=== PATIENT | female | born 1990 | race Caucasian/White ===

== ENCOUNTER 2016-10-19 20:31 | Emergency (ER) | payer MEDICAID ==
--- NOTE | ~2016-10-19 | ER ---
PATIENT'S NAME: KALA LOPEZ [facility] AGE: 26 Y [address] ROOM: [place] [id number] LOCATION: [facility] ADMIT DATE: 10/19/2016 ER/Outpatient Report DISCHARGE DATE: 10/19/2016 FAMILY PHYSICIAN: PHYSICIAN, NO ATTENDING PHYSICIAN: Roque Coyne Time of Arrival: 2038 hours. Time of Evaluation: 2038 hours. CHIEF COMPLAINT: Vaginal cramps and bleeding. HISTORY OF PRESENT ILLNESS: The patient states she was diagnosed by Dr. Jonathan Sheridan, her OB doctor in [place], [place], positive and is approximately 8 weeks' along. States her last menstrual period was August 21, 2016. Her due date would be May 29, 2017. She is a 2, para 1, AB 0. States on Tuesday night Tuesday morning, she had some dark vaginal discharge. Did have sexual intercourse, and then the bleeding became more bright red yesterday. She states that she had cramping yesterday, but it has calmed down, but continues to have some brownish red discharge today. States that she has gone through 4 panty liners. States her last bowel movement was yesterday. She has not had any urinary frequency or discomfort. Denies any problems with her previous . She has not been nauseated, has not vomited. ALLERGIES: NO KNOWN ALLERGIES. CURRENT MEDICATIONS: vitamins. PAST MEDICAL HISTORY: Benign. PAST SURGICAL HISTORY: None. SOCIAL HISTORY: Denies use of tobacco, drugs, or alcohol. REVIEW OF SYSTEMS: Negative other than those mentioned in the HPI. PHYSICAL EXAMINATION: VITAL SIGNS: She weighs 57.9 kg, blood pressure is 102/58, pulse is 78, PATIENT'S NAME: KALA LOPEZ [facility] AGE: 26 Y [address] ROOM: [place], [place] [id number] LOCATION: [facility] ADMIT DATE: 10/19/2016 ER/Outpatient Report DISCHARGE DATE: 10/19/2016 FAMILY PHYSICIAN: PHYSICIAN, YOAN ATTENDING PHYSICIAN: Roque Coyne respirations 16, temp 98.8, O2 saturation is 99% on room air. GENERAL: She is awake, alert, and oriented x4. SKIN: Her skin is pink, warm, and dry. RESPIRATIONS: Even and nonlabored. Lung sounds are clear throughout. HEART: Regular rate and rhythm. ABDOMEN: Soft and nondistended. Bowel sounds are present. Tender in the lower pelvic area. LABORATORY DATA AND X-RAYS: Lab work was completed. CBC is within normal limits. Chem panel is within normal limits. Her serum HCG was 197,385. Blood type is B positive. Ultrasound was completed. color technician reports patient is 8 weeks 3 days. Heart rate was 173. No chorionic bleeding noted. looks good. Cervix is closed. IMPRESSION: Threatened miscarriage. PLAN: Home, rest, fluids. No use of tampons, sexual intercourse, or douching was discussed with the patient. She states she is scheduled to see Dr. Jonathan Sheridan again on 10/29/2016. I told her she needed to see him within the next 1 to 2 days to make sure things are improving versus declining. She verbalized understanding. WAYLON ALVAREZ APRN FOR DO BAILEE CANCHOLA/ashlee /[id number] d: 10/20/16 0331 t: 10/22/16 1402, OUTPATIENT REPORT
[2016-10-19 21:03] LABS: BASOPHIL % 0.2 %; EOSINOPHIL # 0.1 K/uL (0.0-0.5); EOSINOPHIL % 0.5 %; HEMOGLOBIN 12.5 g/dL (11.0-15.0); IMMATURE GRANULOCYTE % 0.4 %; LYMPHOCYTE # 1.6 K/uL (0.8-4.0); LYMPHOCYTE % 16.9 %; MCH 32.2 pg (27.0-34.0); MCHC 34.7 gm/dL (32.0-36.5); MCV 92.8 fl (83.0-98.0); MONOCYTE # 0.4 K/uL (0.0-1.0); MONOCYTE % 4.4 %; MPV 11.2 fl (9.4-12.4); NEUTROPHIL # (ANC) 7.3 K/uL (1.8-7.8); NEUTROPHIL % 77.6 %; NRBC % 0 /100WBC (0-0.00); PLATELET COUNT 174 K/uL (150-450); RBC 3.88 M/uL (3.50-5.00); RDW-CV 12.5 % (11.9-14.6); WBC 9.4 K/uL (4.0-11.0)
[2016-10-19 21:24] LABS: ALBUMIN 3.3 gm/dL (3.5-5.0); ALK PHOS 46 IU/L (33-138); ALT 15 IU/L (12-78); ANION GAP 12.6 (10.0-19.0); AST 12 IU/L (10-40); BLOOD UREA NITROGEN 8 mg/dL (6-24); CALCIUM 8.4 mg/dL (8.5-10.5); CHLORIDE 105 mMol/L (96-110); CO2 27 mMol/L (22-32); CREATININE 0.7 mg/dL (0.5-1.1); ESTIMATED GFR (MDRD EQUATION) > 60; POTASSIUM 3.6 mMol/L (3.7-5.1); SODIUM 141 mMol/L (135-145); TOTAL BILIRUBIN 0.6 mg/dL (0.0-1.5); TOTAL PROTEIN 6.4 g/dL (6.0-8.4)
== END 2016-10-19 22:08 | disposition disaster alternative care site (69) ==
LOC: GMED 20:31
PROVIDERS: Emergency Medicine
DX: O20.0 Threatened abortion (principal)